=== PATIENT | female | born 1955 | race Caucasian/White ===

== ENCOUNTER 2023-01-04 06:16 | Day surgery (SDC) | payer OTHER ==
[2023-01-04] MEDS ORDERED: Phenylephrine HCl 10 MG/ML 1 ML VIAL ONE (06:49)
[2023-01-04] MEDS ORDERED: Ringers Lactate 1,000 ML IV ONE (06:49)
[2023-01-04] MEDS: LIDOCAINE 4% TOP SOLUTION ONE ×3 (06:55→08:12)
[2023-01-04] MEDS ORDERED: LIDOCAINE 1% MPF 30 ML VIAL ONE (07:41)
[2023-01-04] MEDS ORDERED: LIDOCAINE 4% TOP SOLUTION ONE (07:41)
[2023-01-04 07:48] VITALS: TEMP 98.2
[2023-01-04] MEDS ORDERED: propofoL 200 MG/20 ML VIAL IV ONE ×2 (07:59→08:00)
[2023-01-04] MEDS ORDERED: FENTANYL CITR 100 MCG/2 ML ONE (07:59)
[2023-01-04] MEDS ORDERED: LIDOCAINE 1% MPF 5 ML VIAL ONE (08:01)
--- NOTE | 2023-01-04 08:36 | P.OP ---
Date of Service: 01/04/23 (Bronch RUL ant jorge endobronchial BX and Lavage) Findings and Operative Technique PT i s67 yrs of age evaluated for RUL mass. Pt is active smoker. After obtaining an informed consent. Pt premedicated as per anesthesia Finding Normal Carini, vocal cords, Left lung anatomy RUL Ant segment mass visible . 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 No complications. Dc to f/u next week
--- NOTE | 2023-01-04 10:06 | RAD REPORT ---
EXAM DESCRIPTION: Alyce Single View01/04/2023 9:59 am CLINICAL HISTORY: S/P BRONCOSCOPY COMPARISON: No comparisons TECHNIQUE: Portable AP view of the chest. FINDINGS: The lungs are clear. No pneumothorax or effusion. The cardiomediastinal contours are unre markable. IMPRESSION: No acute cardiopulmonary process.
--- NOTE | 2023-01-04 10:11 | RAD REPORT ---
EXAM DESCRIPTION: RAD - FLUORO-GUIDE FOR BRONCH [id number] - 01/04/2023 9:15 am CLINICAL HISTORY: BRONCH W/BX COMPARISON: None available. FINDINGS: Six Images were sent to PACS, documenting spoke positions during a bronchoscopy procedure. No radiologist was available for the procedure, nor will any image interpretation he provided. Starr e refer to the procedural report for additional details. Fluoroscopy time: 81.1 seconds. IMPRESSION: Documentation of fluoroscopy utilization as above.
[2023-01-04 10:26] VITALS: BP 106/54; O2SAT 94
== END 2023-01-04 10:17 | disposition home or self-care (01) ==
LOC: OR 06:16
PROVIDERS: ATTEND Internal Medicine Sleep Medicine
PROC: 0BDC8ZX Extraction of Right Upper Lung Lobe, Via Natural or Artificial Opening Endoscopic, Diagnostic (ICD-10-PCS; principal; 2023-01-04 08:00)
DX: C34.11 Malignant neoplasm of upper lobe, right bronchus or lung (principal); F17.210 Nicotine dependence, cigarettes, uncomplicated
CPT/HCPCS: 88108; 88305 ×2; 71045; 76000; 31625; J2704 ×2; J2001 ×2; J2371; J3010; J7120